=== PATIENT | female | born 1970 | race African-American/Black ===

== ENCOUNTER 2019-04-24 15:57 | Emergency (ER) | payer OTHER ==
[~2019-04-24] VITALS: Ht 157.5 cm; Wt 59.0 kg
[2019-04-24 18:42] LABS: URINE BILIRUBIN NEGATIVE (Negative); URINE BLOOD NEGATIVE (Negative); URINE CLARITY CLEAR; URINE COLOR YELLOW; URINE GLUCOSE-RANDOM* NEGATIVE (Negative); URINE KETONES NEGATIVE (Negative); URINE LEUKOCYTES-REFLEX NEGATIVE (Negative); URINE NITRITE-REFLEX NEGATIVE (Negative); URINE PROTEIN (DIPSTICK) NEGATIVE (Negative); URINE UROBILINOGEN 0.2 E.U./dl (0.2-1.0)
[2019-04-24] MEDS ORDERED: NAPROSYN500 MG PO (19:14)
[2019-04-24] MEDS ORDERED: TRAMADOL 50 MG50 MG PO (19:14)
[2019-04-24 20:18] VITALS: BP 139/82
== END 2019-04-24 19:30 | disposition home or self-care (01) ==
LOC: ER 15:57
PROVIDERS: Emergency Medicine
DX: M54.5 Low back pain (principal); M79.7 Fibromyalgia; M06.9 Rheumatoid arthritis, unspecified; F41.9 Anxiety disorder, unspecified; F32.9 Major depressive disorder, single episode, unspecified; I10 Essential (primary) hypertension

== ENCOUNTER 2019-06-16 20:00 | Emergency (ER) | payer OTHER ==
[~2019-06-16] VITALS: Ht 154.9 cm; Wt 59.0 kg
[~2019-06-16 20:00] MED LIST: NAPROSYN500 MG PO; TRAMADOL 50 MG50 MG PO
[2019-06-16] MEDS ORDERED: MOBIC15 MG PO (20:19)
[2019-06-16] MEDS ORDERED: LATUDA40 MG PO (20:19)
[2019-06-16] MEDS ORDERED: LYRICA 50 MG50 MG PO (20:19)
[2019-06-16] MEDS ORDERED: NORCO 10-325 T1 EACH PO (20:20)
[2019-06-16 21:00] VITALS: BP 137/89
[2019-06-16] MEDS ORDERED: KEFLEX500 M1 PO (21:17)
== END 2019-06-16 21:48 | disposition home or self-care (01) ==
LOC: ER 20:00
DX: G97.82 Other postprocedural complications and disorders of nervous system (principal); M25.532 Pain in left wrist; M79.7 Fibromyalgia; M06.9 Rheumatoid arthritis, unspecified; I10 Essential (primary) hypertension; Z79.899 Other long term (current) drug therapy; Z98.890 Other specified postprocedural states